=== PATIENT | male | born 1965 | race African-American/Black ===

== ENCOUNTER 2018-03-16 13:03 | Emergency (ER) | payer SELFPAY ==
[~2018-03-16 13:03] MED LIST: GASTROGRAFIN 30 ML BOT ONE
--- NOTE | 2018-03-16 15:39 | RAD ---
PORTABLE SUPINE AP ABDOMINAL RADIOGRAPH 03/16/18 HISTORY: Evaluate gastrostomy tube placement. FINDINGS: Gastrostomy tube is noted in place with tip overlying the region of the gastric fundus. Injection of contrast demonstrates contrast within the fundus of the stomach as well as in the region of the pylor us of the stomach with contrast also seen in the small bowel. There is no extravasation of contrast s een to suggest a leak. Bowel gas pattern is n nonspecific. Visualized lung bases are clear. Osseous s tructures are intact. IMPRESSION: Gastrostomy tube noted in placed. Injection of contrast demonstrates contrast within the lumen of the stomach and most proximal duodenum without extravasation of contrast seen. POS: [facility]
[2018-03-16] MEDS ORDERED: levETIRAcetam 500 MG TAB PER TUBE SCH (16:00)
[2018-03-16] MEDS ORDERED: Lisinopril 10 MG TAB ONE (16:13)
== END 2018-03-16 17:38 | disposition home or self-care (01) ==
LOC: ERS 13:03
DX: Z43.1 Encounter for attention to gastrostomy (principal); I10 Essential (primary) hypertension; E78.5 Hyperlipidemia, unspecified; Z86.73 Personal history of transient ischemic attack (TIA), and cerebral infarction without residual deficits; Z79.899 Other long term (current) drug therapy
CPT/HCPCS: 43760; 74018; 96360

== ENCOUNTER 2018-05-02 08:13 | Outpatient (CLI) | payer SELFPAY ==
[~2018-05-02 08:13] MED LIST changes: -GASTROGRAFIN 30 ML BOT ONE; +Sodium Chloride 0.9% 15 ML NEB ONE
--- NOTE | 2018-05-02 12:57 | HP ---
DATE OF SERVICE: 05/02/2018 HISTORY OF PRESENT ILLNESS: Mr. Dejan Payne is a 52-year-old gentleman who presents to [facility] for evaluation of a sacral pressure ulceration. The patient resides at [facility]. The patient is noncommunicative. He is also unaccompanied by any staff or relat bella today. PAST MEDICAL HISTORY: 1. Hypertension. 2. History of cerebrovascular accident. 3. Chronic obstructive pulmonary disease. PAST SURGICAL HISTORY: 1. PEG tube placement. 2. Hand surgery. 3. Tracheostomy. MEDICATIONS: 1. Scopolamine patch. 2. Aspirin 81 mg. 3. Lipitor. 4. Protonix. 5. Plavix. 6. Lovenox. 7. Thiamine. 8. Keppra. 9. Lisinopril. ALLERGIES: No known diagnosed allergies. SOCIAL HISTORY: Negative for current tobacco or ETOH use. FAMILY HISTORY: Noncontributory. PHYSICAL EXAMINATION: VITAL SIGNS: Pulse 112, respirations 20, blood pressure 139/95. GENERAL: A 52-year-old gentleman lying on stretcher in examination room, in no acute distress. HEENT: Normocephalic. NECK: No nuchal rigidity. CHEST: Clear to auscultation. CARDIAC: Regular rate and rhythm. ABDOMEN: Soft. EXTREMITIES: No clubbing or cyanosis. BACK: A sacral pressure ulceration is present which measures approximately 3 x 3.5 cm. Granulation tissue is present within the wound margins. Nonviable tissue present within the wound margins was de brided with an excisional full-thickness debridement with the use of scissors. No purulent drainage is associated with the wound. No erythema of the skin surrounding the wound is present. No macerati on of the skin of the periwound is noted. ASSESSMENT AND PLAN: 1. Sacral pressure ulceration as described above. Dressing changes of Medihoney, gauze and Mepilex sacral will be initiated today. These dressing changes are to be performed on a daily basis or alter natively every other day after cleansing and irrigation. I will see Mr. Payne again in 2-4 weeks. Orders will be transmitted to [facility] for arrangements to be made for a fo llowup visit. No antibiotics will be prescribed today based upon the appearance of the wound. 2. Hypertension. 3. History of cerebrovascular accident. 4. Chronic obstructive pulmonary disease.
== END 2018-05-02 08:14 | disposition home or self-care (01) ==
LOC: WCC 08:13
PROVIDERS: ATTEND Family Medicine
DX: L89.159 Pressure ulcer of sacral region, unspecified stage (principal); J44.9 Chronic obstructive pulmonary disease, unspecified; I10 Essential (primary) hypertension; Z86.73 Personal history of transient ischemic attack (TIA), and cerebral infarction without residual deficits
CPT/HCPCS: A4218

== ENCOUNTER 2018-05-28 11:09 | Outpatient (CLI) | payer SELFPAY ==
--- NOTE | 2018-05-28 13:00 | PRG ---
DATE OF SERVICE: 05/28/2018 HISTORY: Mr. Dejan Payne is a 52-year-old gentleman, who presents [facility] the [facility] for evaluation of a sacral pressure ulceration. The patient resides at [facility] [place] . Again, the patient is unaccompanied by any staff or relatives today. Mr. Payne is noncommunica tive. After being seen in the Wound Center on 05/02/2018, the patient was placed on dressing changes of Medihoney for his sacral pressure ulceration. PHYSICAL EXAMINATION: VITAL SIGNS: Temperature 97.6, pulse 71, respirations 16, blood pressure 122/71. BACK: A sacral pressure ulceration is present, which has improved in its appearance since the patien t's last visit. The depth of the wound is approximately 5 cm. Granulation tissue is present within the wound margins. Nonviable tissue present within the wound margins was debrided with an excisional full-thickness debridement. No purulent drainage is associated with the wound. No erythema of the skin surrounding the wound is present. No maceration of the skin of the periwound is noted. ASSESSMENT AND PLAN: 1. Sacral pressure ulceration as described above. Dressing changes of Medihoney, gauze, and Mepilex sacral will be continued on a daily basis or alternatively every other day after cleansing and irrig ation. I will discuss the treatment plan with the patient's primary care physician, Dr. Sanz. Orders will be transmitted to [facility] [place] for arrangements to be made for a [facility] visit. 2. Hypertension. 3. History of cerebrovascular accident. 4. Chronic obstructive pulmonary disease.
[2018-05-28] MEDS ORDERED: Sodium Chloride 0.9% 15 ML NEB ONE (15:00)
== END 2018-05-28 11:10 | disposition home or self-care (01) ==
LOC: WCC 11:09
PROVIDERS: ATTEND Family Medicine
DX: L89.159 Pressure ulcer of sacral region, unspecified stage (principal); I10 Essential (primary) hypertension; J44.9 Chronic obstructive pulmonary disease, unspecified; Z86.73 Personal history of transient ischemic attack (TIA), and cerebral infarction without residual deficits
CPT/HCPCS: A4218

== ENCOUNTER → 2018-06-13 | Outpatient (CLI) | payer SELFPAY ==
--- NOTE | 2018-06-13 12:07 | PRG ---
DATE OF SERVICE: 06/13/2018 HISTORY: Mr. Dejan Payne is a 52-year-old gentleman who presents to the [facility] Center for evaluation of a sacral pressure ulceration. The patient resides at [facility] in [place]. The patient is unaccompanied by any staff or relative today. The patient is noncommunicative. After being seen in the Wound Center on 05/02/2018, the patient was placed on dressing changes of Medihoney for his sacral pressure ulceration. PHYSICAL EXAMINATION: VITAL SIGNS: Temperature 98.1, pulse 105, respirations 22, blood pressure 110/73. BACK: A sacral pressure ulceration is present which again has improved in its appearance since the patient's last visit. The dimensions of the wound are approximately 1.8 x 1.7 cm, undermining associated with the wound is approximately 4.2 cm in length, granulation tissue is present within the wound margins, nonviable tissue present within the wound margins, was debrided with an excisional full-thickness debridement. No purulent drainage is associated with the wound. No erythema of the skin surrounding the wound is present. No maceration of the skin of the periwound is noted. ASSESSMENT AND PLAN: 1. Sacral pressure ulceration as described above. Dressing changes of Medihoney gauze and Mepilex sacral will be continued on a daily basis or alternatively every other day after cleansing and irrigation. I have discussed the treatment plan with the patient's primary care physician Dr. Sanz. Orders will be transmitted to [facility] [place] for arrangements to be made for a followup visit. 2. Hypertension. 3. History of cerebrovascular accident. 4. Chronic obstructive pulmonary disease. Job ID: [id number]
== END ==
LOC: CANPRECLI → WCC 10:16
PROVIDERS: ATTEND Family Medicine
DX: L89.159 Pressure ulcer of sacral region, unspecified stage (principal); I10 Essential (primary) hypertension; J44.9 Chronic obstructive pulmonary disease, unspecified; Z86.73 Personal history of transient ischemic attack (TIA), and cerebral infarction without residual deficits
CPT/HCPCS: 11042; A4218

== ENCOUNTER 2018-06-27 08:59 | Outpatient (CLI) | payer SELFPAY ==
[2018-06-27] MEDS ORDERED: Sodium Chloride 0.9% 15 ML NEB ONE (09:00)
--- NOTE | 2018-06-27 11:14 | PRG ---
DATE OF SERVICE: 06/27/2018 HISTORY: Mr. Dejan Payne is a 52-year-old gentleman, who presents to the [facility] Center for evaluation of a sacral pressure ulceration. The patient resides at [facility] in [place]. The patient is unaccompanied by any staff or relative today. Mr. Payne is noncommunicative. After being seen in the Wound Center on 05/02/2018, the patient was placed on dressing changes of Medihoney for his sacral pressure ulceration. PHYSICAL EXAMINATION: VITAL SIGNS: Temperature 99.1, pulse 108, respirations 16, and blood pressure 126/85. Accu-Chek 78. BACK: A sacral ulceration is present, which measures approximately 1.0 x 1.0 cm. The dimensions of the wound at the time of the patient's last visit were approximately 1.8 x 1.7 cm. Granulation tissue was present within the wound margins. Nonviable tissue present within the wound margins was debrided with an excisional full-thickness debridement. No purulent drainage is associated with the wound. No erythema of the skin surrounding the wound is present. No maceration of the skin of the periwound is noted. The depth of the wound is approximately 3 cm. ASSESSMENT AND PLAN: 1. Sacral pressure ulceration as described above. Dressing changes of Medihoney gauze and Mepilex sacral will be continued on a daily basis or alternatively every other day after cleansing and irrigation. The treatment plan has been discussed with the patient's primary care physician, Dr. Sanz. Orders will be transmitted to [facility] in [place] for arrangements to be made for a followup visit. 2. Hypertension. 3. History of cerebrovascular accident. 4. Chronic obstructive pulmonary disease. Job ID: [id number]
== END 2018-06-27 09:00 | disposition home or self-care (01) ==
LOC: WCC 08:59
PROVIDERS: ATTEND Family Medicine
DX: L89.159 Pressure ulcer of sacral region, unspecified stage (principal); I10 Essential (primary) hypertension; J44.9 Chronic obstructive pulmonary disease, unspecified; Z86.73 Personal history of transient ischemic attack (TIA), and cerebral infarction without residual deficits
CPT/HCPCS: 11042; A4218